=== PATIENT | male | born 1955 | race Caucasian/White ===

== ENCOUNTER → 2019-10-22 08:43 | Outpatient (BNVA) | payer OTHER, SELFPAY | PROVIDERS: Family Provider Family Medicine; Visit Provider Family Medicine | DX: I10 Essential (primary) hypertension (principal); K25.9 Gastric ulcer, unspecified as acute or chronic, without hemorrhage or perforation | CPT/HCPCS: 80053; 80061; 85025 ==

== ENCOUNTER 2020-02-27 07:50 | Outpatient (CLI) | payer OTHER, SELFPAY ==
--- NOTE | 2020-02-27 08:33 | XR_ITS ---
WS: [id number] KUB, 02/27/2020 Clinical Data: RENAL STONE Comparison: KUB, 08/21/2019. Findings: There is a calcification measuring 0.6 cm overlying the inferior pole of the left kidney. There is al so calcification adjacent to the left L4 transverse process measuring 0.6 cm. There are right upper q uadrant calcifications which may represent gallstones. No pelvic calcifications are seen. XR/XR KUB [id number] Impression: 1. 0.6 cm left renal calcification. 2. Possible 0.6 cm left ureteral calcification at the level L4 transverse proce ss. 3. Possible gallstones.
== END 2020-02-27 07:51 | disposition home or self-care (01) ==
PROVIDERS: Family Provider Family Medicine; Visit Provider Urology
DX: N20.0 Calculus of kidney (principal)
CPT/HCPCS: 74018; 81001

== ENCOUNTER 2020-02-29 12:51 | Day surgery (SDC) | payer OTHER, SELFPAY ==
[2020-02-29] VITALS (8 sets, daily range): BP systolic 108–139; BP diastolic 71–84; PULSE 87–102; RESP 14–20; TEMP 36.5–38.2; O2SAT 94–99; BMI 39.2
--- NOTE | 2020-02-29 | SCC_ITS ---
Procedure Done: Cystoscopy, left ureteropyelogram, ureteroscopy, laser, stent. 52.2 seconds of fluoroscopic guidance, for a cumulative dose of 30.67 mGy, was provided to Dr. Robertson by the radiology department. C-arm images of the abdomen were saved for the patient's permanent record. [facility]
--- NOTE | 2020-02-29 11:26 | XRR_ITS ---
PROCEDURE INFORMATION: Exam: XR Abdomen, 1 View Exam date and time: 02/29/2020 11:40 AM Age: 64 years old Clinical indication: Condition or disease; Kidney or ureter condition; Calculus (stone) in kidney; Additional info: Stones TECHNIQUE: Imaging protocol: XR of the abdomen. Views: Frontal supine view of the abdomen. 1 View. COMPARISON: No relevant prior studies available. FINDINGS: Gastrointestinal tract: Prominent stool. Intraperitoneal space: Prostate calcification. Organs: 7 mm calcification overlying the left renal fossa, suggesting urolithiasis. Multiple gallstones. Bones/joints: Degenerative change. XR/XR KUB [id number] IMPRESSION: 1. Multiple gallstones. 2. 7 mm calcification overlying the left renal fossa, suggesting urolithiasis.
--- NOTE | 2020-02-29 13:20 | SC_ITS ---
WS: [id number] C-arm FL for Urology REASON FOR EXAM: Left ureteroscopy FINDINGS: Fluoroscopic guidance for insertion of a stent and ureteroscope. Good positioning is identi fied. SC/C-arm FL for Urology IMPRESSION: Stent in good position for ureteroscope.
--- NOTE | 2020-02-29 13:23 | P.HPUD_ITS ---
Surgery/Procedure H&P Update DATE OF PROCEDURE: February 29, 2020 DATE H&P PERFORMED: 02/29/20 H&P UPDATE INFORMATION: I have reviewed H&P completed within last 30 days, I have examined patient prior to procedure, No changes to prior documentation and H&P is in [facility] EMR on date indicated PREOP DIAGNOSIS: Refractory left ureteral calculus with severe symptomatology PLANNED PROCEDURE: Operation Date: 02/29/20 13:55 Proposed Procedures p Cystoscopy(Not Applicable) - Jose Robertson MD s Retrograde Pyelogram(Not Applicable) - MD kolton Garcia Flexible Ureteroscopy(Not Applicable) - MD kolton Garcia Laser Lithotripsy(Not Applicable) - MD kolton Garcia Ureteral Stent Placement(Not Applicable) - Jose Robertson MD
--- NOTE | 2020-02-29 14:07 | ANES.PREANE2 ---
Pre-Anesthetic Assessment Pre-Anesthetic Assessment: Height/Weight: Height 1.75 m Weight 120.656 kg Temp Pulse Resp BP Pulse Ox 100.8 F H 94 18 139/84 98 02/29/20 14:01 02/29/20 14:01 02/29/20 14:01 02/29/20 14:01 02/29/20 14:01 Preop Diagnosis: Refractory left ureteral calculus with severe symptomatology Proposed Procedure: Operation Date: 02/29/20 13:55 Proposed Procedures p Cystoscopy(Not Applicable) - Jose Robertson MD s Retrograde Pyelogram(Not Applicable) - Jose Robertson MD s Flexible Ureteroscopy(Not Applicable) - Jose Robertson MD s Laser Lithotripsy(Not Applicable) - Jose Robertson MD s Ureteral Stent Placement(Not Applicable) - Jose Robertson MD Was Beta Davidson taken within 24 hours: Yes Last intake: Intake Last Liquid Date 02/29/20 Last Liquid Time 09:00 Last Solid Date 02/28/20 Last Solid Time 21:00 Last Intake: 07:08 Social: Social History: No alcohol and No tobacco Exam: Pre-Anes Outpt Exam: alert, oriented x 3, clear to auscultation bilaterally and regular rate & rhythm Airway: Submandibular: WNL Cervical ROM: WNL MP: 3 Dentition: False History/ROS: No significant complaints Pulmonary: Pulmonary: None reported CV/HEM: CV/HEM: CAD and HTN Comments: cabg 20 yr ago : : None reported Hepatic: Hepatic: None reported GI: GI: GERD Metabolic: Metabolic: Morbid obesity Musc/skel: Musc/skel: None reported Neuropsych: Neuropsych: None reported Anesthetic Plan: ASA status: 3 Anesthesia: General Risk of > 500 ml blood loss (7ml/kg in children): No PFSH Anesthesia PFSH: Medical History CAD (coronary artery disease) COPD (chronic obstructive pulmonary disease) Cyst, Reynoso's knee Dyslipidemia Essential (primary) hypertension Hypogonadism in male Multiple gastric ulcers Nodule of right lung Renal calculus, left Surgical History H/O circumcision History of back surgery History of coronary artery bypass graft x 3 History of tonsillectomy Family History Mother CAD (coronary artery disease) Cancer Social History Smoking and tobacco status: former smoker Alcohol intake: current Alcohol intake frequency: holidays/special occasions only Marital status: Current occupational status: employed History of recent travel: No Data Anesthesia Cardiac Studies: No Data to Display
[2020-02-29] MEDS: sodium chloride 0.9% 1,000 ML 30 ML IV (14:16)
[2020-02-29] MEDS: scopolamine 1.5 Patch 1 PATCH TRANSDERMA (14:31)
[2020-02-29] MEDS: ondansetron 2 mg/ML SDV 2 mL 4 MG IVP (14:31)
[2020-02-29] MEDS: levofloxacin-dextrose 5 % 500 MG/100 ML PREMIX 100 MG IV (14:35)
[2020-02-29] MEDS: iohexol 300 mg/mL 50 mL Btl (OR ONLY) XX (15:20)
--- NOTE | 2020-02-29 15:35 | P.OP_ITS ---
Operative Report Date of procedure: February 29, 2020 Pre-op Diagnosis: Refractory left ureteral calculus with severe symptomatology Post-op diagnosis: same Post-op Diagnosis: Refractory left ureteral calculus with severe symptomatology UTI Procedure Done: Cystoscopy, left ureteropyelogram, ureteroscopy, laser, stent. Implants: 4.7 x 28 cm double-pigtail stent without string Pathology: Stone fragments Surgeon: Ailyn Anesthesia: General Estimated blood loss: Minimal Urine output: Not measured Complications: None Findings: 1. Diffuse cystitis changes in the bladder. With a stone located still in the sacral level portion of the ureter it was felt that the urgency and frequency that he was complaining of was not from the stone but rather from the cystitis changes. 2. Stone in the expected position in the sacral level of the left ureter. Fragmented well and all fragments removed with parachute basket. Condition: stable Disposition: PACU Brief History: Braulio is a very pleasant 64-year-old white male well-known to me for history of recurrent urolithiasis. Has been on surveillance protocol in the office with a known left lower pole stone measuring approximately 8 to 9 mm but without obstruction and no symptoms as well as a smaller roughly 6 mm fragment in the left lower pole. Initially he chose observation but earlier this week he presented to the clinic with complaints of increasing left-sided renal colicky symptoms and it appeared that the left lower pole smaller stone had migrated into the proximal ureter. Reviewed options including continued conservative therapy with the possibility that the stone may spontaneously pass. He was provided pain medication, Flomax, and schedule follow-up in hopes of that occurring. Called back today with increasing symptoms. Was having severe persistent nausea and vomiting and increasing flank pain. Was also developing increasing urgency and frequency. In the office urinalysis showed nitrite positive urine with less than 10 white cells per high-powered field. He was still in a significant amount of discomfort with persistent emesis. Because of the concern regarding his urine, refractory symptoms including severe pain and nausea vomiting he elected to proceed with intervention today. Procedure: After urgent evaluation examination and obtaining of informed consent he was taken to the operating suite on 02/29/2020 where general anesthesia was administered without difficulty after appropriate timeout was performed, SCDs confirmed to be functioning, preoperative antibiotics administered, and beta- zamzam protocol confirmed. Prepped and draped in usual sterile fashion in dorsolithotomy position pain careful attention to avoiding pressure points. 21 Maldivian cystoscope with 30 degree lens was introduced to the urethral meatus and advanced into the bladder under videoscopy. Bladder was systematically examined and found to be consistent with acute cystitis. No other pathology was identified. An 8 Maldivian cone-tipped catheter was intubated to the left ureteral orifice for gentle left retrograde ureteropyelogram which demonstrated normal course and caliber of the ureter until the filling defect was identified over the mid sacral aspect level of the ureter. A flexible tip guidewire was then advanced up the left ureter bypassing the stone easily curling in the area of the upper pole calyx. The distal ureter was then dilated with a 15 Maldivian 4 cm balloon. 4 willow of pressure requirement for complete dilation. The wire was secured to the drapes as a safety wire and a 7 Maldivian offset semirigid ureteroscope was advanced up the left ureter next to the guidewire where the stone was encountered in the expected position. It was secured and try grasping forceps but would not easily removed due to its size. The stone was then fragmented with a 365 ?m homing laser fiber into small enough pieces that were then easily removed with 2 passes of parachute basket. Final inspection showed no significant fragments. The cystoscope was then backloaded over the guidewire and a 4.7 Maldivian by 28 cm double pigtail stent without string was passed over the guidewire through the cystoscope into appropriate position as confirmed via fluoroscopy and cystoscopy. Bladder was drained and the procedure completed. Tolerated procedure well without complications and was awakened in the operating room and returned to the recovery in stable condition. Plans: 1. Observe in the recovery room. I expect that he will be safe to be discharged today. Will send home with continuation of antibiotics and close follow-up.
[2020-03-11 06:53] LABS: Stone Source LEFT URETER
== END 2020-02-29 17:00 | disposition home or self-care (01) ==
LOC: OR 12:51
PROVIDERS: PCP Family Medicine; Visit Provider Urology
PROC: 0TJB8ZZ Inspection of Bladder, Via Natural or Artificial Opening Endoscopic (ICD-10-PCS; CPT 52000; principal; 2020-02-29 13:35)
PROC: (CPT 74420; 2020-02-29 13:35)
PROC: 0TJ98ZZ Inspection of Ureter, Via Natural or Artificial Opening Endoscopic (ICD-10-PCS; CPT 52351; 2020-02-29 13:35)
PROC: (CPT 52332; 2020-02-29 13:35)
PROC: (CPT 50605; 2020-02-29 13:35)
DX: N20.1 Calculus of ureter (principal); I25.10 Atherosclerotic heart disease of native coronary artery without angina pectoris; I10 Essential (primary) hypertension; Z95.1 Presence of aortocoronary bypass graft; K21.9 Gastro-esophageal reflux disease without esophagitis; E66.01 Morbid (severe) obesity due to excess calories; Z68.39 Body mass index [BMI] 39.0-39.9, adult; E78.5 Hyperlipidemia, unspecified; J44.9 Chronic obstructive pulmonary disease, unspecified; Z82.49 Family history of ischemic heart disease and other diseases of the circulatory system; Z87.891 Personal history of nicotine dependence
CPT/HCPCS: 52332; 52351; 12345; 74018; 76000; 80053; 81001; 82365; 87077; 87086; 87186; 88300; 96374; C1725; J1956; J2370; J2405; J2710; J3010; J3490; J7030

== ENCOUNTER → 2020-03-07 11:02 | Outpatient (BNVA) | payer OTHER, SELFPAY | PROVIDERS: PCP Family Medicine; Visit Provider Urology | DX: N20.1 Calculus of ureter (principal); Z96.0 Presence of urogenital implants | CPT/HCPCS: 81001 ==

== ENCOUNTER 2020-05-05 13:45 | Outpatient (CLI) | payer OTHER, SELFPAY ==
--- NOTE | 2020-05-05 13:45 | XR_ITS ---
WS: [id number] EXAM: ABDOMINAL KUB DATE OF EXAMINATION: 05/05/2020, 1404 COMPARISON: Abdominal KUB from 02/29/2020 and fluoroscopic procedure from 02/29/2020. HISTORY: Patient is 64 years old with left-sided kidney stone. Follow-up. FINDINGS: Left double-J ureteral stent has been removed in the interim. Approximately 8 mm stone remains in sid ce in the area of the inferior left renal silhouette. No calcification overlying the course of either ureter or right kidney silhouette. Changes of arthritis are seen in the spine with postoperative mikhail nges on the left at the L5 level. XR/XR KUB [id number] IMPRESSION: Interval removal of a left double-J ureteral stent. Approximately 8 mm calcific ation remains over the inferior left kidney silhouette.
== END 2020-05-05 13:46 | disposition home or self-care (01) ==
LOC: RAD 13:49
PROVIDERS: PCP Family Medicine; Visit Provider Nurse Practitioner Family
DX: N20.0 Calculus of kidney (principal); Z46.6 Encounter for fitting and adjustment of urinary device
CPT/HCPCS: 74018; 81001

== ENCOUNTER 2020-05-30 10:39 | Outpatient (CLI) | payer OTHER, SELFPAY ==
--- NOTE | 2020-05-30 10:46 | CT_ITS ---
WS: [id number] CT CHEST WITH INTRAVENOUS CONTRAST HISTORY: NODULE OF RIGHT LUNG TECHNIQUE: Contiguous 5 mm axial imaging performed on the thorax. Coronal and sagittal reformats are submitted. All CT scans at [facility] use at least one of these dose optimization techniq ues: automated exposure control; mA and/or kV adjustment per patient size (includes targeted exams wh ere dose is matched to clinical indication); or iterative reconstruction. CONTRAST: Omnipaque 300; 95 mL IV. DLP: 1056.92 mGycm COMPARISON: 05/30/2019 and 02/26/2019, 06/14/2018 and 09/05/2018 Lungs and central airway: No change in the ovoid 6 mm subpleural nodule in the medial RIGHT upper lob e since 06/14/2018. No new or additional pulmonary nodules are identified. There is a benign granuloma in the central LEFT lung. No pneumothorax, pneumonia or vascular congestion. Pleura: Normal. No pleural effusion. Heart and pericardium: Normal size heart. [place] coronary artery calcifications and prior CABG. Mediastinum and meño: Stable 10 mm RIGHT hilar lymph node. Round precarinal lymph node also 10 mm is stable. Vessels: Mild atherosclerosis aorta. Normal size pulmonary artery. Chest wall and lower neck: Prior CABG. Subcentimeter stable bilateral thyroid nodules. Upper abdomen: Hepatic steatosis. Normal size liver. There are a few scattered hypodensities which ar e too small to characterize but stable and probably small cysts. Cholelithiasis. No adrenal mass. Osseous structures: Moderate increase in thoracic kyphosis with spondylitic changes. No destructive b one lesions. CT/CT chest w con* [id number] IMPRESSION: 1. Long-term stability 6 mm subpleural nodule medial RIGHT upper lobe. No cecil tional follow-up necessary. 2. Prior CABG. 3. Cholelithiasis. 4. Hepatic steatosis.
[2020-05-30 11:09] LABS: Blood Urea Nitrogen 9 mg/dL (8-23); Glomerular Filtration Rate 75.2 mL/min (90-130)
[2020-05-30] MEDS: iohexol 300 mg/mL 100 mL Btl IV (11:17)
== END 2020-05-30 10:40 | disposition home or self-care (01) ==
LOC: RADWPI 10:46
PROVIDERS: PCP Family Medicine; Visit Provider Family Medicine
DX: R91.1 Solitary pulmonary nodule (principal); Z95.1 Presence of aortocoronary bypass graft; K80.20 Calculus of gallbladder without cholecystitis without obstruction; K76.0 Fatty (change of) liver, not elsewhere classified
CPT/HCPCS: 71260; 82565; 84520; Q9967

== ENCOUNTER → 2020-12-08 08:12 | Outpatient (BNVA) | payer OTHER, SELFPAY | PROVIDERS: PCP Family Medicine; Visit Provider Podiatrist Foot & Ankle Surgery | DX: M25.572 Pain in left ankle and joints of left foot (principal); M25.571 Pain in right ankle and joints of right foot; M77.32 Calcaneal spur, left foot | CPT/HCPCS: 77077 ==

== ENCOUNTER → 2022-05-19 12:45 | Outpatient (BNVA) | payer MEDICARE, SELFPAY | PROVIDERS: PCP Clinical Nurse Specialist Adult Health; Visit Provider Internal Medicine | DX: I25.10 Atherosclerotic heart disease of native coronary artery without angina pectoris (principal); I10 Essential (primary) hypertension; E78.5 Hyperlipidemia, unspecified; Z87.891 Personal history of nicotine dependence | CPT/HCPCS: 99213; 99214 ==

== ENCOUNTER → 2022-11-05 09:53 | Outpatient (BNVA) | payer MEDICARE, SELFPAY | PROVIDERS: PCP Clinical Nurse Specialist Adult Health; Visit Provider Clinical Nurse Specialist Adult Health | DX: E78.5 Hyperlipidemia, unspecified (principal); I10 Essential (primary) hypertension; R73.9 Hyperglycemia, unspecified; E29.1 Testicular hypofunction; K25.9 Gastric ulcer, unspecified as acute or chronic, without hemorrhage or perforation; E55.9 Vitamin D deficiency, unspecified; G47.10 Hypersomnia, unspecified; E66.2 Morbid (severe) obesity with alveolar hypoventilation | CPT/HCPCS: 80053; 80061; 82040; 82306; 83036; 83540; 83735; 84270; 84403; 85025 ==

== ENCOUNTER → 2023-05-25 09:31 | Outpatient (BNVA) | payer MEDICARE, SELFPAY | PROVIDERS: PCP Clinical Nurse Specialist Adult Health; Visit Provider Clinical Nurse Specialist Adult Health | DX: E78.5 Hyperlipidemia, unspecified (principal); Z00.00 Encounter for general adult medical examination without abnormal findings; E55.9 Vitamin D deficiency, unspecified; Z12.11 Encounter for screening for malignant neoplasm of colon; R53.83 Other fatigue | CPT/HCPCS: 80053; 80061; 82306; 84154; 84443; 85025 ==

== ENCOUNTER → 2023-07-22 10:26 | Outpatient (BNVA) | payer MEDICARE, SELFPAY | PROVIDERS: PCP Clinical Nurse Specialist Adult Health; Visit Provider Otolaryngology | DX: R49.0 Dysphonia (principal); E66.01 Morbid (severe) obesity due to excess calories; Z68.41 Body mass index [BMI] 40.0-44.9, adult | CPT/HCPCS: 31575; 99204 ==

== ENCOUNTER → 2023-09-08 10:35 | Outpatient (BNVA) | payer MEDICARE, SELFPAY | PROVIDERS: PCP Clinical Nurse Specialist Adult Health; Visit Provider Clinical Nurse Specialist Adult Health | DX: I10 Essential (primary) hypertension (principal); E55.9 Vitamin D deficiency, unspecified | CPT/HCPCS: 82652 ==

== ENCOUNTER 2023-09-11 16:16 | Emergency (ER) | payer MEDICARE, SELFPAY ==
--- NOTE | 2023-09-11 16:17 | XRR_ITS ---
PROCEDURE INFORMATION: Exam: XR Chest Exam date and time: 09/11/2023 4:53 PM Age: 68 years old Clinical indication: Cough TECHNIQUE: Imaging protocol: Radiologic exam of the chest. Views: 1 view. COMPARISON: CT chest w con* [id number] 05/30/2020 11:14 AM FINDINGS: Lungs: No focal infiltrate or consolidation. Pleural spaces: No pleural effusion or pneumothorax. Heart/Mediastinum: Cardiac size is within normal limits. Vasculature: Mild arteriosclerosis of the thoracic aorta. Bones/joints: Postsurgical changes of sternotomy/CABG. XR/XR chest 1V portable [id number] IMPRESSION: Postsurgical changes of sternotomy/CABG. No acute cardiopulmonary abnormality.
[2023-09-11 16:22] VITALS: BP 128/80; PULSE 82; RESP 16; TEMP 37.7; O2SAT 95
--- NOTE | 2023-09-11 16:36 | ED_ITS ---
HPI - COVID General: Chief Complaint: COVID symptoms Stated Complaint: cough Time Seen by Provider: 09/11/23 16:36 History of Present Illness: 68-year-old male patient comes in today with cough for 3 days. Patient came in due to persistent coughing spells at times. Patient has a history of coronary artery disease in which he takes metoprolol and simvastatin for. Patient denies any fever or chills. Patient appears nontoxic. Patient appears in no pain. COVID 19 common symptoms: positive non-productive cough; negative fever(s), body aches, throat pain, nausea, vomiting or diarrhea COVID Results: SARS-CoV-2 Antigen (Rapid) positive (Negative) H 09/11/23 16:5 8 Review of Systems General: Reports: 10 or more systems reviewed and unremarkable except in HPI and below Const: Denies: fever(s) or body aches ENMT: Denies: throat pain Resp: Reports: non-productive cough GI: Denies: nausea, vomiting, diarrhea or constipation : Denies: difficulty urinating Musc: Denies: neck pain or back pain PFSH ED PFSH: Medical History Essential (primary) hypertension CAD (coronary artery disease) COPD (chronic obstructive pulmonary disease) Dyslipidemia Hypersomnia Hoarse voice quality Multiple gastric ulcers Morbid obesity Erectile dysfunction Vitamin D deficiency Plantar fasciitis, left Tinea pedis Cyst, Reynoso's knee Tinnitus Hypogonadism in male Renal calculus, left Nodule of right lung Encounter for screening colonoscopy Surgical History History of back surgery History of coronary artery bypass graft x 3 History of tonsillectomy H/O circumcision Family History Mother CAD (coronary artery disease) Cancer Social History Smoking and tobacco/nicotine status: former use of tobacco/nicotine (quit 1999) Alcohol intake: current Alcohol intake frequency: holidays/special occasions only Substance/Drug Use: never Marital status: Current occupational status: employed Physical Exam Const: COMMON NORMALS: alert HENMT: COMMON NORMALS: normocephalic HEAD & SCALP: normocephalic THROAT: posterior oropharynx normal Neck/C-Spine: COMMON NORMALS: full ROM and no meningeal signs Resp: COMMON NORMALS: normal respiratory effort and clear to auscultation bilaterally AUSCULTATION: clear to auscultation bilaterally Cardio: COMMON NORMALS: regular rate and regular rhythm RATE: regular rate RHYTHM: regular rhythm GI: COMMON NORMALS: Soft to palpation and non-tender PALPATION: Yes Soft to palpation Back/Pelvis: COMMON NORMALS: thoracic and lumbar spine normal to inspection Extremity: COMMON NORMALS: no pedal edema Neuro: SENSORIUM/ORIENTATION: Yes alert MENINGEAL SIGNS: Yes no meningeal signs Skin: COMMON NORMALS: turgor normal GENERAL SKIN EXAM: turgor normal Course Vital Signs: Vital signs: Vital Signs Temperature 99.9 F H 09/11/23 16:22 Pulse Rate 81 09/11/23 16:59 Respiratory Rate 18 09/11/23 16:59 Blood Pressure 136/77 09/11/23 16:59 Pulse Oximetry 95 09/11/23 16:59 Oxygen Delivery Me thod Room Air 09/11/23 16:59 MDM - COVID Medical Decision Making Patient comes in for cough and malaise for the last 3 days. On exam patient appears nontoxic. Respirations are even lungs are clear to auscultation. Vital signs are normal. Differential diagnosis includes upper respiratory infection, COVID, influenza, pneumonia. Chest x-ray noted no pneumonia. Patient was positive for COVID and negative for the flu. Reviewed exam with patient recommended supportive care for the upper respiratory COVID infection. Patient agreed with plan and need for follow-up or return to the ER. Lab Data Radiology Impressions Chest X-Ray 09/11/23 16:17 IMPRESSION: Postsurgical changes of sternotomy/CABG. No acute cardiopulmonary abnormality. Laboratory Results Influenza Type A Ag negative (Negative) 09/11/23 16:58 Influenza Type B Ag negative (Negative) 09/11/23 16:58 SARS-CoV-2 Ag (Rapid) positive (Negative) H 09/11/23 16:58 SARS-CoV-2 Antigen (Rapid) positive (Negative) H 09/11/23 16:5 8 All radiology interpretation(s) finalized by discharge Discharge Plan Discharge Patient Disposition: Home Clinical Impression: Upper respiratory tract infection due to 2019-nCoV Condition: Stable Prescriptions: No Action aspirin 81 mg tablet,delayed release (DR/EC) 81 mg PO DAILY cholecalciferol (vitamin D3) 100 mcg (4,000 unit) capsule 300 mcg PO DAILY pantoprazole 40 mg tablet,delayed release (DR/EC) 40 mg PO DAILY Qty: 90 3RF simvastatin 80 mg tablet 80 mg PO DAILY Qty: 90 3RF metoprolol tartrate 25 mg tablet 12.5 mg PO BID Qty: 90 3RF Discharge Orders: Discharge ED (Routine); Ordered 09/11/23 Ordered By: Landon Fink Referrals: Edgard Jacques NP [Primary Care Provider] - Discharge Diet: Usual diet Discharge Activity: Increase activity as tolerated Patient Instructions: Upper Respiratory Infection (ED) Activity Restrictions/Additional Instructions: Home and rest. Drink plenty of water and fluids. Use acetaminophen and ibuprofen for pain and fever. Use [id number] cough medicine as needed for cough. Follow-up with primary care for further instructions. Return to ED for worsening symptoms such as shortness of breath, severe chest pain, inability to hold fluids down, or new concerns. Coding Level of Care Code ED Water Pollution Control Technician for [facility]
[2023-09-11 16:59] VITALS: BP 136/77; PULSE 81; RESP 18; O2SAT 94; O2SAT 95
--- NOTE | 2023-09-11 16:59 | PC.NURSE ---
RN ASSUMED CARE AT THIS TIME
[2023-09-11 17:34] LABS: Influenza A by IFA negative (Negative); Influenza B by IFA negative (Negative)
[2023-09-11 17:47] LABS: SARS Covid-2 Antigen positive (Negative)
[2023-09-11 18:13] VITALS: BP 132/83; PULSE 83; RESP 16; O2SAT 95
== END 2023-09-11 18:14 | disposition home or self-care (01) ==
PROVIDERS: Emergency Medicine; Emergency Provider Nurse Practitioner Family; PCP Clinical Nurse Specialist Adult Health
DX: U07.1 COVID-19 (principal); Z79.82 Long term (current) use of aspirin; Z87.891 Personal history of nicotine dependence; I10 Essential (primary) hypertension; J44.9 Chronic obstructive pulmonary disease, unspecified; E78.5 Hyperlipidemia, unspecified; Z95.1 Presence of aortocoronary bypass graft
CPT/HCPCS: 71045; 87426; 87804; 99284

== ENCOUNTER → 2023-12-20 15:04 | Outpatient (BNVA) | payer MEDICARE, SELFPAY | PROVIDERS: PCP Clinical Nurse Specialist Adult Health; Visit Provider Podiatrist Foot & Ankle Surgery | DX: B35.1 Tinea unguium (principal) | CPT/HCPCS: 99213 ==

== ENCOUNTER → 2023-12-22 10:28 | Outpatient (BNVA) | payer MEDICARE, SELFPAY | PROVIDERS: PCP Clinical Nurse Specialist Adult Health; Visit Provider Clinical Nurse Specialist Adult Health | DX: Z79.899 Other long term (current) drug therapy (principal); B35.1 Tinea unguium | CPT/HCPCS: 80053 ==

== ENCOUNTER → 2024-02-23 12:50 | Outpatient (BNVA) | payer MEDICARE, SELFPAY | PROVIDERS: PCP Clinical Nurse Specialist Adult Health; Visit Provider Clinical Nurse Specialist Adult Health | DX: I10 Essential (primary) hypertension (principal); E78.5 Hyperlipidemia, unspecified; E55.9 Vitamin D deficiency, unspecified | CPT/HCPCS: 85025 ==

== ENCOUNTER → 2024-02-27 09:38 | Outpatient (BNVA) | payer MEDICARE, SELFPAY | PROVIDERS: PCP Clinical Nurse Specialist Adult Health; Visit Provider Clinical Nurse Specialist Adult Health | DX: I10 Essential (primary) hypertension (principal); E78.5 Hyperlipidemia, unspecified; E55.9 Vitamin D deficiency, unspecified; R79.89 Other specified abnormal findings of blood chemistry; I25.10 Atherosclerotic heart disease of native coronary artery without angina pectoris; L60.3 Nail dystrophy; M54.31 Sciatica, right side; M54.32 Sciatica, left side; N18.9 Chronic kidney disease, unspecified; Z79.899 Other long term (current) drug therapy | CPT/HCPCS: 80053; 80061; 82306; 85025 ==

== ENCOUNTER → 2024-03-12 15:54 | Outpatient (BNVA) | payer MEDICARE, SELFPAY | PROVIDERS: PCP Clinical Nurse Specialist Adult Health; Visit Provider Clinical Nurse Specialist Adult Health | DX: D72.829 Elevated white blood cell count, unspecified (principal) | CPT/HCPCS: 83880; 85025 ==

== ENCOUNTER → 2025-01-24 13:08 | Outpatient (BNVA) | payer MEDICARE, SELFPAY | PROVIDERS: PCP Physician Assistant; Visit Provider Internal Medicine | DX: I25.10 Atherosclerotic heart disease of native coronary artery without angina pectoris (principal); E78.5 Hyperlipidemia, unspecified; I10 Essential (primary) hypertension | CPT/HCPCS: 99214 ==

== ENCOUNTER 2025-04-03 15:46 | Outpatient (CLI) | payer MEDICARE, SELFPAY ==
--- NOTE | 2025-04-03 15:53 | CT_ITS ---
WS: [id number] CT abdomen pelvis wo/w [id number] REASON FOR EXAM: HEMATURIA IV CONTRAST ADMINISTERED: 100 mL of Omnipaque 350. TECHNIQUE: Initial axial images of the abdomen and pelvis without intravenous contrast. Following intravenous administration of contrast multiple axial images of the abdomen and pelvis. Coronal and sagittal reconstructions of the unenhanced and enhanced axial images. TOTAL EXAM DLP: 3445.[address] scans at [facility] use at least one of these dose optimization techniques: automated exposure control; mA and/or kV adjustment per patient size (includes targeted exams where dose is matched to clinical indication); or iterative reconstruction. FINDINGS: No significant abnormality of the lung bases. Multiple simple bilateral cysts within the liver ranging from 3 mm to 10 mm. Liver otherwise unremarkable. Multiple small gallbladder calculi. Unremarkable pancreas and spleen. Normal adrenals. Normal right kidney. 9 x 13 mm left central intrarenal calculus. Small left renal cyst. No ureteral calculi. No renal or collecting system mass. No abdominal mass or adenopathy. No focal fluid collection or free fluid. Mild fusiform aneurysmal dilatation of the abdominal aorta 2.7 x 3 cm. No mural thrombus. No pelvic mass,, adenopathy, focal fluid collection, or free fluid. No bladder calculi or bladder mass. CT/CT abdomen pelvis wo/w [id number] IMPRESSION: Central left renal calculus as above.
[2025-04-03] MEDS: iohexol 350 mg/mL 500 mL Btl (per mL) IV (16:07)
== END 2025-04-03 15:47 | disposition home or self-care (01) ==
LOC: RAD 15:48
PROVIDERS: PCP Physician Assistant; Visit Provider Nurse Practitioner Family
DX: N20.0 Calculus of kidney (principal); R31.9 Hematuria, unspecified
CPT/HCPCS: 74178

== ENCOUNTER 2025-06-26 14:23 | Outpatient (CLI) | payer MEDICARE, SELFPAY ==
--- NOTE | 2025-06-26 14:31 | XR_ITS ---
WS: [id number] KUB, AP view, 06/26/2025 Clinical Data: LEFT RENAL STONE Comparison: None. Findings: No abnormal intraabdominal masses are seen. There is a faint 1.2 cm linear calcification overlying the inferior aspect of the left kidney. No calcifications overlie the right kidney. There is no dilatated small bowel or evidence of obstruction. There are bilateral upper abdominal surgical clips. 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 The SI joints and hips are not remarkable. XR/XR KUB [id number] Impression: Possible inferior pole left renal calculus.
--- NOTE | 2025-06-26 14:31 | US_ITS ---
WS: [id number] RENAL ULTRASOUND HISTORY: LEFT RENAL STONE COMPARISON: 03/06/2025 TECHNIQUE: 2-D and color Doppler imaging of the kidney submitted. Right kidney: 9.1 cm x 4.2 cm x 5.5 cm. Cortex: 2.0 cm Normal echogenicity with no hydronephrosis or mass. Left kidney: 9.7 cm x 4.4 cm x 6.2 cm. Cortex: 1.5 cm Normal echogenicity with no hydronephrosis or mass. Possible nonobstructing calcification in the lower pole. Previously noted calcification on the CT of 04/03/2025 was in the central renal pelvis. The calcification identified today measures approximately 7 mm. If this is the same calcification and may have migrated into the lower pole of the kidney. Aorta: Normal. Urinary Bladder: Normal distention. US/US renal BI* [id number] IMPRESSION: 1. No renal obstruction. 2. LEFT renal 7 mm calcification in the lower pelvis.
== END 2025-06-26 14:24 | disposition home or self-care (01) ==
LOC: RAD 14:24
PROVIDERS: PCP Physician Assistant; Visit Provider Nurse Practitioner Family
DX: N20.0 Calculus of kidney (principal); M47.816 Spondylosis without myelopathy or radiculopathy, lumbar region
CPT/HCPCS: 74018; 76770

== ENCOUNTER → 2025-08-28 13:34 | Outpatient (BNVA) | payer MEDICARE, SELFPAY | PROVIDERS: PCP Physician Assistant; Visit Provider Podiatrist Foot & Ankle Surgery | DX: B35.3 Tinea pedis (principal); B35.1 Tinea unguium | CPT/HCPCS: 99213 ==